=== PATIENT | male | born 1950 | race Caucasian/White ===

== ENCOUNTER 2016-07-26 06:55 | Day surgery (SDC) | payer OTHER ==
[2016-07-25 13:14] VITALS: BMI 32.8
[2016-07-26] MEDS ORDERED: PROPOFOL 20 ML ONE ×4 (07:55)
[2016-07-26 09:16] VITALS: TEMP 97.6
[2016-07-26 10:02] VITALS: BP 130/66; PULSE 68
[2016-07-26 10:06] LABS: BASOPHIL 0.5 % (0-2.0); EOSINOPHIL 0.6 % (0-4.5); MCH 30.4 pg (25.7-33.7); MCHC 34.5 g/dl (32.0-35.9); MEAN PLT VOLUME 7.5 fl (7.5-11.1); NEUTROPHILS 80.9 % (42.8-82.8); PLATELET COUNT 171 K/MM3 (134-434); RDW 13.1 % (11.9-15.9); WHITE BLOOD COUNT 6.1 K/mm3 (4.0-10.0)
[2016-07-26 10:21] LABS: C-REACTIVE PROTEIN < 0.3 MG/DL (0.00-0.3); CHOLESTEROL 192 mg/dL (50-200)
[2016-07-26 10:22] LABS: ALBUMIN 4.1 g/dl (3.4-5.0); ANION GAP 10 (8-16); CALCIUM 9.4 mg/dL (8.5-10.1); CO2 32 mmol/L (21-32); GLUCOSE,RANDOM 97 mg/dL (74-106); SGOT/AST 19 U/L (15-37); SGPT/ALT 19 U/L (12-78)
[2016-07-26 10:40] LABS: FERRITIN 156.898 ng/ml (16.4-293.9); LDL CHOLESTEROL (ONLY SJRH) 115 mg/dL (5-100)
[2016-07-26 11:00] LABS: ALK PHOS 68 U/L (45-117); BILIRUBIN,TOTAL 0.6 mg/dL (0.2-1.0); CREATININE 0.8 mg/dL (0.7-1.3); TOT PROT 7.4 g/dl (6.4-8.2)
[2016-07-27 08:06] LABS: SERUM IRON 70 ug/dL (38-169); TOTAL IRON BINDING CAPACITY 368 ug/dL (250-450); UIBC 298 ug/dL (111-343)
--- NOTE | 2016-07-27 12:23 | PATH ---
Surgical Pathology Report Patient Name: GEORGI DANG [facility]. Rec. #: [id number] /Age/Gender: 1950 (Age: 65) / M Account: [id number] Location: U-ENDOSCOPY Taken: 07/26/2016 Received: 07/26/2016 Reported: 07/27/2016 Physicians: Fariha Kimble M.D. Specimen(s) Received A: BX 2ND PORTION DUODENUM & BULB B: BX STOMACH C: BX DISTAL MID ESOPHAGUS D: BX TERMINAL ILEUM E: BX CECUM F: BX RIGHT COLON G: PROXIMAL TRANSVERSE COLON POLYP H: BX MID TRANSVERSE COLON I: BX DESCENDING COLON J: BX SIGMOID K: BX RECTUM Clinical History Crohn's disease, reflux Gastritis, reflux, Crohn's disease, transverse colon polyp Final Diagnosis A. DUODENUM, SECOND PORTION AND BULB, BIOPSY: DUODENAL MUCOSA WITH CHRONIC INFLAMMATION, FOCAL [place] HYPERPLASIA AND FOCAL GASTRIC METAPLASIA CONSISTENT WITH PEPTIC DUODENITIS. NO HISTOLOGIC EVIDENCE OF GLUTEN SENSITIVE ENTEROPATHY (CELIAC DISEASE). B. STOMACH, BIOPSY: GASTRIC ANTRAL MUCOSA WITH MODERATE CHRONIC GASTRITIS AND REACTIVE GASTROPATHY. IMMUNOSTAIN FOR H. PYLORI IS NEGATIVE FOR ORGANISMS. C. ESOPHAGUS, DISTAL AND MID, BIOPSY: SQUAMOUS EPITHELIUM WITH CHRONIC INFLAMMATION AND REFLUX TYPE CHANGES. PRESENT (NO INTESTINAL METAPLASIA/ELLIOTT'S ESOPHAGUS). NO EVIDENCE OF EOSINOPHILIC ESOPHAGITIS.deciduitis D. TERMINAL ILEUM, BIOPSY: ILEAL MUCOSA WITH REACTIVE AGGREGATES AND FOCAL MINIMAL CRYPT ALTERATION. NO EVIDENCE OF ACTIVE INFLAMMATION, GRANULOMATA OR DYSPLASIA; NO INCREASE IN INTRAEPITHELIAL LYMPHOCYTES. E. COLON, CECUM, BIOPSY: COLONIC MUCOSA WITH FOCAL MINIMAL CRYPT ALTERATION. NO EVIDENCE OF ACTIVE INFLAMMATION, GRANULOMATA OR DYSPLASIA. F. COLON , RIGHT, BIOPSY: COLONIC MUCOSA WITH FOCAL MINIMAL CRYPE ALTERATION. NO EVIDENCE OF ACTIVE INFLAMMATION, GRANULOMATA OR DYSPLASIA. G. COLON, PROXIMAL TRANSVERSE, POLYP, BIOPSY: TUBULAR ADENOMA. H. COLON, MID TRANSVERSE, BIOPSY: COLONIC MUCOSA WITHOUT SIGNIFICANT PATHOLOGIC CHANGES. NO EVIDENCE OF ACTIVE INFLAMMATION, GRANULOMATA OR DYSPLASIA. I. COLON, DESCENDING, BIOPSY: COLONIC MUCOSA WITH FOCAL LYMPHOID AGGREGATES AND FOCAL MINIMAL CRYPT ALTERATION. NO EVIDENCE OF ACTIVE INFLAMMATION, GRANULOMATA OR DYSPLASIA. J. COLON, SIGMOID, BIOPSY: COLONIC MUCOSA WITH FOCAL MINIMAL CRYPT ALTERATION. NO EVIDENCE OF ACTIVE INFLAMMATION, GRANULOMATA WITH DYSPLASIA. K. RECTUM, BIOPSY: RECTAL MUCOSA WITH FOCAL MINIMAL CRYPT ALTERATION AND HYPERPLASTIC CHANGE. NO EVIDENCE OF ACTIVE INFLAMMATION, GRANULOMATA OR DYSPLASIA. Electronically Signed Mazin Pierce M.D. Gross Description A. Received in formalin, labeled "biopsy second portion of duodenum/bulb" are 3 lam, irregular portions of soft tissue ranging from 0.3-0.5 cm in greatest dimension. The specimens are submitted in toto in one cassette. B. Received in formalin, labeled "biopsy stomach" are 3 lam, irregular portions of soft tissue ranging from 0.1-0.2 cm in greatest dimension. The specimens are submitted in toto in one cassette. C. Received in formalin, labeled "biopsy distal/mid esophagus" are 4 lam, irregular portions of soft tissue ranging from 0.1-0.3 cm in greatest dimension. The specimens are submitted in toto in one cassette. D. Received in formalin, labeled "biopsy terminal ileum" are 2 lam, irregular portions of soft tissue averaging 0.4 cm in greatest dimension. The specimens are submitted in toto in one cassette. E. Received in formalin, labeled "biopsy cecum" are 2 lam, irregular portions of soft tissue averaging 0.2 cm in greatest dimension. The specimens are submitted in toto in one cassette. F. Received in formalin, labeled "biopsy right colon" are 2 lam, irregular portions of soft tissue measuring 0.3 and 1.2 cm in greatest dimension. The specimens are submitted in toto in one cassette. G. Received in formalin, labeled "biopsy proximal transverse colon polyp" are 2 lam, irregular portions of soft tissue averaging 0.3 cm in greatest dimension. The specimens are submitted in toto in one cassette. H. Received in formalin, labeled "biopsy mid transverse colon polyp" are 2 lam, irregular portions of soft tissue measuring 0.3 and 0.5 cm in greatest dimension. The specimens are submitted in toto in one cassette. I. Received in formalin, labeled "biopsy descending colon" are 2 lam, irregular portions of soft tissue averaging 0.3 cm. in greatest dimension. The specimens are submitted in toto in one cassette. J. Received in formalin, labeled "biopsy sigmoid" are 4 lam, irregular portions of soft tissue ranging from 0.2-0.4 cm in greatest dimension. The specimens are submitted in toto in one cassette. K. Received in formalin, labeled "biopsy rectum" are 4 lam, irregular portions of soft tissue ranging from 0.3-0.6 cm in greatest dimension. The specimens are submitted in toto in one cassette. [id number]/26/2016
[2016-07-28 08:07] LABS: ALPHA 2 MACROGLOBULINS,QN 96 mg/dL (110-276); BILIRUBIN TOTAL 0.3 mg/dL (0.0-1.2); FIBROSIS SCORE- 0.08 (0.00-0.21); GGT= 48 IU/L (0-65); GLUCOSE SERUM 95 mg/dL (65-99); HAPTOGLOBIN= 163 mg/dL (34-200); HEIGHT. 68 Inches (.); STEATOSIS SCORE- 0.83 (0.00-0.30); TRIGLYCERIDES= 253 mg/dL (0-149); WEIGHT. 216 LBS (.)
== END 2016-07-26 09:49 | disposition home or self-care (01) ==
LOC: JASU-ENDO 06:55
PROVIDERS: ATTEND Internal Medicine Gastroenterology
PROC: 0DB68ZX Excision of Stomach, Via Natural or Artificial Opening Endoscopic, Diagnostic (ICD-10-PCS; 2016-07-26)
PROC: 0DB28ZX Excision of Middle Esophagus, Via Natural or Artificial Opening Endoscopic, Diagnostic (ICD-10-PCS; 2016-07-26)
PROC: 0DB38ZX Excision of Lower Esophagus, Via Natural or Artificial Opening Endoscopic, Diagnostic (ICD-10-PCS; 2016-07-26)
PROC: 0DBL8ZX Excision of Transverse Colon, Via Natural or Artificial Opening Endoscopic, Diagnostic (ICD-10-PCS; 2016-07-26)
PROC: 0DBE8ZX Excision of Large Intestine, Via Natural or Artificial Opening Endoscopic, Diagnostic (ICD-10-PCS; 2016-07-26)
PROC: 0DB98ZX Excision of Duodenum, Via Natural or Artificial Opening Endoscopic, Diagnostic (ICD-10-PCS; principal; 2016-07-26 08:00)
DX: Z12.11 Encounter for screening for malignant neoplasm of colon (principal); K50.90 Crohn's disease, unspecified, without complications; D12.3 Benign neoplasm of transverse colon; K63.89 Other specified diseases of intestine; K21.9 Gastro-esophageal reflux disease without esophagitis; R19.5 Other fecal abnormalities
CPT/HCPCS: 36415; 80053; 80061; 82306; 82378; 82607; 82728; 82746; 83540; 83550; 83721; 85025; 86140; 88305-TC; 88342-TC

== ENCOUNTER 2017-10-19 06:52 | Day surgery (SDC) | payer OTHER ==
[2017-10-19 07:31] VITALS: BMI 35.9
[2017-10-19] MEDS ORDERED: PROPOFOL 20 ML ONE ×2 (07:53)
[2017-10-19 08:41] VITALS: TEMP 97.8
[2017-10-19 09:17] VITALS: BP 142/74; PULSE 70
--- NOTE | 2017-10-22 15:09 | PATH ---
Surgical Pathology Report Patient Name: GEORGI DANG [facility]. Rec. #: [id number] /Age/Gender: 1950 (Age: 67) / M Account: [id number] Location: [facility]-ENDOSCOPY Taken: 10/19/2017 Received: 10/19/2017 Reported: 10/22/2017 Physicians: Fariha Kimble M.D. Specimen(s) Received A: BX ILEUM B: BX CECUM C: BX HEPATIC FLEXURE PSEUDO POLYP D: BX TRANSVERSE COLON E: SPLENIC FLEXURE BIOPSY F: BX SIGMOID G: BX RECTUM Clinical History Crohn's surveillance Postoperative diagnosis: Pseudopolyp hepatic flexure, quiescent Crohn's disease Final Diagnosis A. ILEUM, BIOPSY: ILEAL MUCOSA WITHOUT SIGNIFICANT PATHOLOGIC FINDINGS. B. CECUM, BIOPSY: COLONIC MUCOSA WITH MILD INCREASE IN CHRONIC INFLAMMATORY INFILTRATE AND SMALL LYMPHOID AGGREGATES WITHIN LAMINA PROPRIA. C. COLON, HEPATIC FLEXURE, PSEUDOPOLYP, BIOPSY: POLYPOID COLONIC MUCOSA WITH MILD ARCHITECTURAL DISTORTION AND MILD INCREASE IN CHRONIC INFLAMMATORY INFILTRATE WITHIN LAMINA PROPRIA. D. TRANSVERSE COLON, BIOPSY: COLONIC MUCOSA WITH SMALL LYMPHOID AGGREGATES. E. COLON, SPLENIC FLEXURE, BIOPSY: COLONIC MUCOSA WITH MILD ARCHITECTURAL DISTORTION, FOCAL FIBROSIS, MILD INCREASE IN CHRONIC INFLAMMATORY INFILTRATE , AND LYMPHOID AGGREGATES WITHIN LAMINA PROPRIA. F. SIGMOID COLON, BIOPSY: COLONIC MUCOSA WITH SMALL LYMPHOID AGGREGATE. G. RECTUM, BIOPSY: COLONIC MUCOSA WITH MILD ARCHITECTURAL DISTORTION, FOCAL FIBROSIS, AND LYMPHOID AGGREGATES WITHIN LAMINA PROPRIA. Comment: No active inflammation, granuloma, or dysplasia identified. Findings are consistent with quiescent(inactive)colitis. History of Crohn's disease is noted. Electronically Signed Odalis Baptiste M.D. Gross Description A. Received in formalin, labeled "ileum" are 4 lam, irregular portions of soft tissue ranging from 0.2-0.3 cm. in greatest dimension. The specimens are submitted in toto in one cassette. B. Received in formalin, labeled "cecum" are 4 lam, irregular portions of soft tissue ranging from 0.2-0.4 cm. in greatest dimension. The specimens are submitted in toto in one cassette. C. Received in formalin, labeled "hepatic flexure pseudopolyp" are 3 lam, irregular portions of soft tissue ranging from 0.3-0.5 cm. in greatest dimension. The specimens are submitted in toto in one cassette. D. Received in formalin, labeled "transverse colon" are 5 lam, irregular portions of soft tissue ranging from 0.1-0.4 cm. in greatest dimension. The specimens are submitted in toto in one cassette. E. Received in formalin, labeled "splenic flexure" are 4 lam, irregular portions of soft tissue ranging from 0.2-0.4 cm. in greatest dimension. The specimens are submitted in toto in one cassette. F. Received in formalin, labeled "sigmoid colon" are 3 lam, irregular portions of soft tissue averaging 0.3 cm. in greatest dimension. The specimens are submitted in toto in one cassette. G. Received in formalin, labeled "rectum" are 2 lam, irregular portions of soft tissue averaging 0.3 cm. in greatest dimension. The specimens are submitted in toto in one cassette. 10/19/201710/19/2017
== END 2017-10-19 09:18 | disposition home or self-care (01) ==
LOC: JASU-ENDO 06:52
PROVIDERS: ATTEND Internal Medicine Gastroenterology
PROC: 0DBP8ZX Excision of Rectum, Via Natural or Artificial Opening Endoscopic, Diagnostic (ICD-10-PCS; principal; 2017-10-19 08:00)
DX: Z12.11 Encounter for screening for malignant neoplasm of colon (principal); K63.5 Polyp of colon; K62.4 Stenosis of anus and rectum; K50.90 Crohn's disease, unspecified, without complications
CPT/HCPCS: 88305-TC

== ENCOUNTER 2021-12-22 09:35 | Emergency (ER) | payer OTHER ==
[2021-12-22 09:50] VITALS: BP 143/83; PULSE 96; RESP 18; TEMP 98.9; BMI 36.9
== END 2021-12-22 12:23 | disposition home or self-care (01) ==
LOC: JER 09:35
DX: M79.661 Pain in right lower leg (principal)
CPT/HCPCS: 93971-TC; 99284-25

== ENCOUNTER 2022-04-26 04:35 | Day surgery (SDC) | payer OTHER ==
[2022-04-24 16:44] VITALS: BMI 37.9
[2022-04-26] MEDS ORDERED: KETAMINE HCL 500 MG/10 ML VIAL ONE (07:21)
[2022-04-26 08:37] VITALS: TEMP 97.8
[2022-04-26 09:09] VITALS: BP 129/58; PULSE 83; RESP 17
[2022-04-26] MEDS ORDERED: PROPOFOL 20 ML ONE (10:46)
[2022-04-26] MEDS ORDERED: ROCURONIUM BROMIDE 50 MG/5 ML SYRINGE ONE (10:47)
== END 2022-04-26 09:21 | disposition home or self-care (01) ==
LOC: JASU-ENDO 04:35
PROVIDERS: ATTEND Internal Medicine Gastroenterology
PROC: 0DBL8ZX Excision of Transverse Colon, Via Natural or Artificial Opening Endoscopic, Diagnostic (ICD-10-PCS; 2022-04-26)
PROC: 0DBN8ZX Excision of Sigmoid Colon, Via Natural or Artificial Opening Endoscopic, Diagnostic (ICD-10-PCS; 2022-04-26)
PROC: 0DBP8ZX Excision of Rectum, Via Natural or Artificial Opening Endoscopic, Diagnostic (ICD-10-PCS; 2022-04-26)
PROC: 0DBB8ZX Excision of Ileum, Via Natural or Artificial Opening Endoscopic, Diagnostic (ICD-10-PCS; 2022-04-26)
PROC: 0DBM8ZX Excision of Descending Colon, Via Natural or Artificial Opening Endoscopic, Diagnostic (ICD-10-PCS; 2022-04-26)
PROC: 0DBH8ZX Excision of Cecum, Via Natural or Artificial Opening Endoscopic, Diagnostic (ICD-10-PCS; 2022-04-26)
PROC: 0DBK8ZX Excision of Ascending Colon, Via Natural or Artificial Opening Endoscopic, Diagnostic (ICD-10-PCS; principal; 2022-04-26 08:00)
DX: Z12.11 Encounter for screening for malignant neoplasm of colon (principal); K63.5 Polyp of colon; K64.8 Other hemorrhoids; Z86.010 Personal history of colon polyps; Z87.19 Personal history of other diseases of the digestive system; I10 Essential (primary) hypertension
CPT/HCPCS: 88305-TC

== ENCOUNTER 2023-10-24 04:04 | Day surgery (SDC) | payer OTHER ==
[2023-10-19 10:51] VITALS: BMI 39.1
[2023-10-24 08:30] VITALS: TEMP 98
[2023-10-24 08:57] VITALS: RESP 18
[2023-10-24 09:00] VITALS: BP 131/59; PULSE 74
== END 2023-10-24 09:10 | disposition home or self-care (01) ==
LOC: JASU-ENDO 04:04
PROVIDERS: ATTEND Internal Medicine Gastroenterology
PROC: 0DBL8ZX Excision of Transverse Colon, Via Natural or Artificial Opening Endoscopic, Diagnostic (ICD-10-PCS; 2023-10-24)
PROC: 0DBN8ZX Excision of Sigmoid Colon, Via Natural or Artificial Opening Endoscopic, Diagnostic (ICD-10-PCS; 2023-10-24)
PROC: 0DBP8ZX Excision of Rectum, Via Natural or Artificial Opening Endoscopic, Diagnostic (ICD-10-PCS; 2023-10-24)
PROC: 0DBB8ZX Excision of Ileum, Via Natural or Artificial Opening Endoscopic, Diagnostic (ICD-10-PCS; 2023-10-24)
PROC: 0DBM8ZX Excision of Descending Colon, Via Natural or Artificial Opening Endoscopic, Diagnostic (ICD-10-PCS; 2023-10-24)
PROC: 0DBH8ZX Excision of Cecum, Via Natural or Artificial Opening Endoscopic, Diagnostic (ICD-10-PCS; 2023-10-24)
PROC: 0DBK8ZX Excision of Ascending Colon, Via Natural or Artificial Opening Endoscopic, Diagnostic (ICD-10-PCS; principal; 2023-10-24 08:00)
DX: Z12.11 Encounter for screening for malignant neoplasm of colon (principal); K63.89 Other specified diseases of intestine; Z86.010 Personal history of colon polyps; Z87.19 Personal history of other diseases of the digestive system; K62.4 Stenosis of anus and rectum
CPT/HCPCS: 88305-TC